=== PATIENT | male | born 1940 | race Two or more races ===

== ENCOUNTER 2024-01-12 12:29 | Inpatient (IN) | payer OTHER ==
[~2024-01-12] VITALS: Ht 177.8 cm; Wt 86.2 kg
[~2024-01-12 12:29] MED LIST: AMLODIPINE BESYL5 MG PO; ATORVASTATIN CA20 MG PO; AVAPRO75 MG PO; CLOPIDOGREL BIS75 MG PO; COZAAR100 MG PO; DRAMAMINE LESS25 MG PO; HYDRALAZINE HCL25 MG PO; IBERSANTAN; INTEGRA PLUS C1 EACH PO; IPRATROPIU0.2 MG/1 M IH; ISOSORBIDE DINI30 MG PO; JANUMET 50-5001 EACH; LACTULOSE10 GM/152 PO; LEVALBUTER0.31 MG/3 IH; LIPITOR40 M1 PO; NEURONTIN300 MG PO; OMEPRAZOLE40 MG; OMEPRAZOLE40 MG PO; PLAVIX75 MG; PLAVIX75 MG PO; SERTRALINE HCL100 MG; SERTRALINE HCL100 MG PO; SERTRALINE20 MG/1 ML; TOPROL XL50 M1 PO; Vibramycin PO
[2024-01-12] MEDS ORDERED: HYDRALAZINE HCL25 MG PO (12:44)
[2024-01-12] MEDS ORDERED: GABAPENTIN300 M2 PO (12:44)
[2024-01-12] MEDS ORDERED: HORIZANT300 MG PO (12:44)
[2024-01-12] MEDS ORDERED: FARXIGA10 MG PO (12:45)
[2024-01-12] MEDS ORDERED: IRBESARTAN75 MG PO (12:45)
[2024-01-12] MEDS ORDERED: ACID REDUCER20 M1 PO (12:45)
[2024-01-12] MEDS ORDERED: ISOSORBIDE DINI30 MG PO (12:45)
--- NOTE | 2024-01-12 12:45 | NUR ---
SE RECIBE PACIENTE EN AMBULANCIA ALERTA Y ORIENTADO EN PERSONA; EN COMPANIA DE FAMILIAR QUIEN INDICA PRESENTA DIFICULTAD RESPIRATORIA Y TOS PRODUCTIVA. EN ADICION REFIERE QUE PRESENTA INFFECCION DE ORINA PARA LA CUAL ESTA TOMANDO LEVAQUIN SIN MEJORA ALGUNA.
[2024-01-12] MEDS ORDERED: 0.9 % SODIUM CHLORIDE 1,000 ML IV SCH ×2 (13:00→18:00)
[2024-01-12 13:40] LABS: ABG PH 7.277 (7.35-7.45); ABG PO2 113.3 mmHg (80-100); ABG pCO2 31.9 mmHg (35-45); BASE EXCESS -10.9 mmol/l; BICARBONATE 14.5 mmol/l (23-25); SaO2 97.4 %; Tco2 15.5 mmol/l
--- NOTE | 2024-01-12 13:42 | NUR ---
PTE ALERTA Y ORIENTADO X3 RN LIEBERMAN LE ORIENTA SOBRE TX MEDICO LO CUAL REFIERE ENTENDER Y ACEPTAR SE LE REALIZA MUESTRAS DE LAB BAJO MEDIDAS ASEPTICAS Y SE LE ADMINISTRA MEDICAMENTOS [facility] ORDEN MEDICA. SE NOTIFICA ABG PENDIENTE
[2024-01-12 13:47] LABS: HEMATOCRIT 28.2 % (39.0-48.0); MEAN CELL VOLUME 90.1 fL (80.0-100.00); MEAN CORPUSCULAR HGB CONC 33.2 g/dl (32.0-36.0); PLATELET COUNT 234 K/uL (150-450); RED BLOOD COUNT 3.13 M/uL (4.00-6.00); RED CELL DISTRIBUTION WIDTH 16.4 % (11.5-14.5)
[2024-01-12 13:48] LABS: HEMOGLOBIN 9.3 g/dL (13-16.00); MEAN CORPUSCULAR HEMOGLOBIN 29.7 pg (27.00-32.0)
[2024-01-12] MEDS ORDERED: CEFTRIAXONE SODIUM 500 MG VIAL IV ONE (14:00)
[2024-01-12 14:04] LABS: CALCIUM 9.3 mg/dL (8.5-10.1); CREATININE SERUM 3.26 mg/dL (0.70-1.30); GFR 18.25; POTASSIUM 5.88 mEq/L (3.5-5.1)
[2024-01-12 14:22] LABS: allen test SATISFACTORY; o2 32 %; puncture site RADIAL RIGHT
[2024-01-12] MEDS ORDERED: IPRATROPIUM BROMIDE 0.5 MG/2.5 ML AMPUL.NEB IH SCH (17:49)
[2024-01-12] MEDS ORDERED: SODIUM POLYSTYRENE SULFONATE 15 G/4 TSP TSP PO SCH (17:55)
[2024-01-12] MEDS ORDERED: GUAIFENESIN 200 MG/10 ML BLIST.PACK PO SCH (18:00)
[2024-01-12] MEDS ORDERED: SODIUM BICARBONATE 50 MEQ in SODIUM CHLORIDE 0.45 % 1,000 ML IV ONE (18:00)
[2024-01-12] MEDS ORDERED: hydrALAZINE HCL 25 MG TABLET PO PRN (18:00)
[2024-01-12] MEDS ORDERED: PIPERACILLIN/TAZOBACTAM SODIUM 2.25 GM in DEXTROSE 5 % IN WATER 50 ML IV SCH (18:00)
[2024-01-12] MEDS ORDERED: ACETAMINOPHEN 500 MG GEL..CAP PO PRN (18:00)
[2024-01-12] MEDS ORDERED: LEVALBUTEROL HCL 1.25 MG/3 ML SOLUTION IH ONE (18:00)
[2024-01-12 20:23] LABS: INR 1.24; PARTIAL THROMBOPLASTIN TIME 32.3 SECONDS (22.0-34.0); PROTHROMBIN TIME 13.3 SECONDS (9.0-11.5)
[2024-01-12 20:24] LABS: MAGNESIUM 2.2 mg/dL (1.8-2.4); PHOSPHOROUS 4.3 mg/dL (2.5-4.9)
[2024-01-13 01:50] VITALS: BP 166/70
[2024-01-13] MEDS ORDERED: SODIUM POLYSTYRENE SULFONATE 15 G/4 TSP TSP PO SCH (09:00)
[2024-01-13] MEDS ORDERED: ISOSORBIDE MONONITRATE 30 MG TABLET PO SCH (09:00)
[2024-01-13] MEDS ORDERED: FAMOTIDINE/PF 20 MG in 0.9 % SODIUM CHLORIDE 8 ML IV PUSH SCH (09:00)
[2024-01-13] MEDS ORDERED: IRBESARTAN 75 MG TABLET PO SCH (09:00)
[2024-01-13] MEDS ORDERED: SERTRALINE HCL 25 MG TABLET PO SCH (09:00)
[2024-01-13] MEDS ORDERED: ENOXAPARIN SODIUM 30 MG/0.3 ML SYRINGE SUBCUTANEO SCH (09:00)
[2024-01-13 09:31] VITALS: BP 156/84; O2SAT 99
[2024-01-13] MEDS ORDERED: MECLIZINE HCL 25 MG TABLET PO SCH (18:05)
[2024-01-13 18:41] VITALS: BP 179/66; O2SAT 93
[2024-01-14 01:57] VITALS: BP 182/70; O2SAT 97
[2024-01-14] MEDS ORDERED: CEFTRIAXONE SODIUM 2,000 MG in 0.9 % SODIUM CHLORIDE 100 ML IV SCH (09:00)
[2024-01-14 09:28] LABS: ALBUMIN 3.1 gm/dL (3.4-5.0); BILIRUBIN TOTAL 0.63 mg/dL (0.3-1.2); CALCIUM 9.1 mg/dL (8.5-10.1); CREATININE SERUM 3.21 mg/dL (0.70-1.30); GFR 18.58; GLOBULINA 4.2 G/DL (2.4-3.5); POTASSIUM 5.59 mEq/L (3.5-5.1); TOTAL PROTEIN 7.3 gm/dL (6.4-8.2)
[2024-01-14 10:30] VITALS: BP 186/70; O2SAT 98
[2024-01-14] MEDS ORDERED: DEXTROSE 5 %-0.45 % SOD CHLORD 1,000 ML IV SCH (15:15)
[2024-01-14] MEDS ORDERED: hydrALAZINE HCL 25 MG TABLET PO SCH (17:00)
[2024-01-14] MEDS ORDERED: AA 4.25%/CAL/LYTES/DEXT 5% 1,000 ML PERIFERAL SCH (17:00)
[2024-01-14 18:39] VITALS: BP 140/90
[2024-01-14] MEDS ORDERED: MOMETASONE FUROATE TOP SCH (19:27)
[2024-01-15 02:33] VITALS: BP 150/92
[2024-01-15] MEDS ORDERED: MOMETASONE FUROATE 15 GM TUBE TOP SCH (09:00)
[2024-01-15 10:15] VITALS: BP 188/74; O2SAT 98
[2024-01-15 11:27] LABS: CALCIUM 8.6 mg/dL (8.5-10.1); CREATININE SERUM 2.75 mg/dL (0.70-1.30); GFR 22.21; POTASSIUM 4.31 mEq/L (3.5-5.1)
[2024-01-15] MEDS ORDERED: hydrALAZINE HCL 50 MG TABLET PO SCH (13:00)
[2024-01-15 14:19] VITALS: O2SAT 99
[2024-01-15 18:59] VITALS: O2SAT 99
[2024-01-15 20:46] VITALS: BP 169/80
[2024-01-15 20:49] VITALS: O2SAT 100
[2024-01-16] VITALS (9 sets, daily range): BP systolic 160–180; BP diastolic 70–90; O2SAT 95–100
[2024-01-16 06:24] LABS: HEMATOCRIT 28.7 % (39.0-48.0); HEMOGLOBIN 9.6 g/dL (13-16.00); MEAN CELL VOLUME 89.4 fL (80.0-100.00); MEAN CORPUSCULAR HGB CONC 33.5 g/dl (32.0-36.0); PLATELET COUNT 222 K/uL (150-450); RED BLOOD COUNT 3.21 M/uL (4.00-6.00); RED CELL DISTRIBUTION WIDTH 16.6 % (11.5-14.5)
[2024-01-16 06:43] LABS: INR 1.17; PARTIAL THROMBOPLASTIN TIME 28.4 SECONDS (22.0-34.0); PROTHROMBIN TIME 12.6 SECONDS (9.0-11.5)
[2024-01-16 08:47] LABS: URINE APPEARANCE Clear; URINE BILIRRUBIN Negative (NEGATIVE); URINE BLOOD NHT; URINE COLOR Yellow; URINE KETONE Negative (NEGATIVE); URINE LEUKOCYTE Trace; URINE NITRATE Negative; URINE UROBILINOGEN 0.2 E.U./dl
[2024-01-16 08:50] LABS: URINE BACTERIA 216.7 uL (0.0-1933); URINE EPITHELIAL CELLS 7.1 uL (0.0-38.8); URINE RBC 26.8 uL (0.0-20.8); URINE WBC 237.7 uL (0.0-23.2)
[2024-01-16 09:03] LABS: URINE GLUCOSE 250 MG/DL (NEGATIVE); URINE PROTEIN 300 (NEGATIVE)
[2024-01-16 14:36] LABS: ALBUMIN 2.9 gm/dL (3.4-5.0); BILIRUBIN TOTAL 0.39 mg/dL (0.3-1.2); BILIRUBIN,CONJUGATED 0.14 mg/dL (0.0-0.2); BILIRUBIN,UNCONJUGATED 0.25 mg/dL (0.0-0.6); CALCIUM 8.2 mg/dL (8.5-10.1); CHOL HDL RATIO 2.8 (0-5.0); CREATININE SERUM 2.3 mg/dL (0.70-1.30); GFR 27.29; MAGNESIUM 1.9 mg/dL (1.8-2.4); POTASSIUM 3.82 mEq/L (3.5-5.1); TOTAL PROTEIN 6.9 gm/dL (6.4-8.2)
[2024-01-16] MEDS ORDERED: DOCUSATE CALCIUM 240 MG CAPSULE PO SCH (17:00)
[2024-01-16] MEDS ORDERED: DOXAZOSIN MESYLATE 2 MG TABLET PO SCH (21:00)
[2024-01-16] MEDS ORDERED: hydrALAZINE HCL 20 MG VIAL IV PRN (23:45)
[2024-01-17] VITALS (9 sets, daily range): BP systolic 140–170; BP diastolic 59–80; O2SAT 97–100
[2024-01-17] MEDS ORDERED: hydrALAZINE HCL 50 MG TABLET PO SCH (09:00)
[2024-01-17] MEDS ORDERED: hydrALAZINE HCL 25 MG,hydrALAZINE HCL 50 MG PO SCH (09:00)
[2024-01-17] MEDS ORDERED: SODIUM CHLORIDE 0.45 % 1,000 ML IV SCH (10:45)
[2024-01-18] VITALS (8 sets, daily range): BP systolic 130–170; BP diastolic 68–80; O2SAT 95–100
[2024-01-18 06:45] LABS: ALBUMIN 2.7 gm/dL (3.4-5.0); BILIRUBIN TOTAL 0.34 mg/dL (0.3-1.2); CALCIUM 7.8 mg/dL (8.5-10.1); CREATININE SERUM 2.09 mg/dL (0.70-1.30); GFR 30.48; GLOBULINA 3.7 G/DL (2.4-3.5); TOTAL PROTEIN 6.4 gm/dL (6.4-8.2)
[2024-01-18] MEDS ORDERED: POTASSIUM CHLORIDE IN WATER 40 MEQ/100 ML PIGGYBAG IV SCH (09:00)
[2024-01-19 02:09] VITALS: BP 156/60
[2024-01-19] MEDS ORDERED: CEFTRIAXONE SODIUM 2,000 MG VIAL IV ONE (09:00)
[2024-01-19 09:33] VITALS: BP 167/82; O2SAT 97
[2024-01-19 11:11] LABS: CALCIUM 8.2 mg/dL (8.5-10.1); CREATININE SERUM 2.04 mg/dL (0.70-1.30); GFR 31.34; POTASSIUM 3.58 mEq/L (3.5-5.1)
[2024-01-19 14:07] VITALS: O2SAT 100
[2024-01-19 14:25] VITALS: BP 160/80
[2024-01-19] MEDS ORDERED: HYDRALAZINE HCL50 MG PO (16:15)
[2024-01-19] MEDS ORDERED: DOXAZOSIN MESYLA2 MG PO (16:15)
[2024-01-19] MEDS ORDERED: SERTRALINE HCL25 MG PO (16:15)
[2024-01-19] MEDS ORDERED: MECLIZINE HCL25 MG PO (16:15)
[2024-01-19] MEDS ORDERED: ISOSORBIDE MONO30 MG PO (16:15)
[2024-01-19] MEDS ORDERED: MOMETASONE FURO15 G1 TOP (16:15)
[2024-01-19 16:44] VITALS: O2SAT 100
== END 2024-01-19 18:02 | disposition home or self-care (01) | DRG 178 ==
LOC: ER 12:29 → MEDJ 18:48
PROVIDERS: Emergency Medicine; General Practice; Internal Medicine; Internal Medicine Nephrology; Specialist; ADMIT Internal Medicine; ATTEND Internal Medicine
PROC: BB24ZZZ Computerized Tomography (CT Scan) of Bilateral Lungs (ICD-10-PCS; principal; 2024-01-12)
PROC: 3E0F7GC Introduction of Other Therapeutic Substance into Respiratory Tract, Via Natural or Artificial Opening (ICD-10-PCS; 2024-01-12)
PROC: B246ZZZ Ultrasonography of Right and Left Heart (ICD-10-PCS; 2024-01-13)
PROC: BW21ZZZ Computerized Tomography (CT Scan) of Abdomen and Pelvis (ICD-10-PCS; 2024-01-14)
PROC: 4A12X4Z Monitoring of Cardiac Electrical Activity, External Approach (ICD-10-PCS; 2024-01-15)
DX: J69.0 Pneumonitis due to inhalation of food and vomit (principal); E87.0 Hyperosmolality and hypernatremia; J90 Pleural effusion, not elsewhere classified; N18.4 Chronic kidney disease, stage 4 (severe); N39.0 Urinary tract infection, site not specified; E87.5 Hyperkalemia; E11.22 Type 2 diabetes mellitus with diabetic chronic kidney disease; I12.9 Hypertensive chronic kidney disease with stage 1 through stage 4 chronic kidney disease, or unspecified chronic kidney disease; I11.0 Hypertensive heart disease with heart failure; I50.9 Heart failure, unspecified; Z66 Do not resuscitate; E78.5 Hyperlipidemia, unspecified; E86.0 Dehydration